=== PATIENT | female | born 2005 | race African-American/Black ===

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

== ENCOUNTER 2025-02-04 13:58 | Emergency (ER) | payer SELFPAY ==
[2025-02-04] MEDS ORDERED: Acetaminophen 500 MG TAB ONE (15:10)
[2025-02-04 16:02] LABS: Glucose, Urine (Dipstick) Normal (Negative); Leukocyte 100 (Negative); Protein, Urine (Dipstick) 15 mg/dl (Neg-Trace); Specific Gravity, Urine 1.010 (1.005-1.030)
[2025-02-04 16:05] LABS: Pregnancy Test - Urine (BHCG) Negative (Negative); Pregu Control Background? CLEAR/WHITE (CLR/WHITE); Pregu Control Bar Appear? YES (CONTROL BAR)
[2025-02-04 16:13] LABS: CAUTI Indications for Culture Pelvic or flank pain; RBC/HPF 0-3 HPF (0-3)
[2025-02-04 16:27] LABS: Bacteria/HPF 3+ HPF (None Seen)
[2025-02-04 16:28] LABS: Mucous/LPF 1+ LPF (<2+)
[2025-02-04 16:29] LABS: Urine Culture Reflex No No
[2025-02-04] MEDS ORDERED: cefTRIAXone (ROCEPHIN) 1 GM VIAL ONE (16:39)
== END 2025-02-04 17:04 | disposition home or self-care (01) ==
LOC: CSHERS 13:58
DX: N39.0 Urinary tract infection, site not specified (principal); B34.9 Viral infection, unspecified
CPT/HCPCS: 81001; 81025; 87077; 87086; 87426; 96372; 99283; J0696; Q0162